=== PATIENT | female | born 1985 | race Caucasian/White ===

== ENCOUNTER 2018-06-12 09:52 | Inpatient (IN) ==
[2018-06-12] MEDS ORDERED: Sod Chloride 0.9% Inj 1,000 ML IV.CONT SCH (10:15)
[2018-06-12] MEDS ORDERED: Diatrizoate Meglum/Diatrizoate Sod Liq 9 ML UDC PO ONE ×2 (10:22→12:00)
[2018-06-12] MEDS ORDERED: Diatrizoate Meglum/Diatrizoate Sod Liq 9 ML UDC ONE (10:42)
[2018-06-12 10:48] LABS: Baso % (Auto) 0.3 % (0.0-2.0); Eos # (Auto) 0.7 th/mm3 (0.0-0.4); Eos % (Auto) 6.5 % (0.0-4.0); Hematocrit 25.4 % (35.0-46.0); Hemoglobin 8.1 gm/dL (11.6-15.3); Lymph # (Auto) 2.4 th/mm3 (1.0-4.8); Lymph % (Auto) 22.4 % (9.0-44.0); Mean Corpuscular HGB Conc 31.8 % (32.0-36.0); Mean Corpuscular Hemoglobin 25.3 pg (27.0-34.0); Mean Corpuscular Volume 79.5 fL (80.0-100.0); Mean Platelet Volume 6.9 fL (7.0-11.0); Neut # (Auto) 6.6 th/mm3 (1.8-7.7); Neut % (Auto) 61.8 % (16.0-70.0); Platelet Count 496 th/mm3 (150-450); Red Blood Count 3.19 mil/mm3 (4.00-5.30); Red Cell Distribution Width 15.1 % (11.6-17.2); White Blood Count 10.7 th/mm3 (4.0-11.0)
[2018-06-12 10:53] LABS: Activated Partial Thrombo Time 24.5 sec (24.3-30.1); INR 1.1 Ratio; Prothrombin Time 10.8 sec (9.8-11.6)
--- NOTE | 2018-06-12 10:56 | ED ---
HPI General Chief Complaint: Recheck/Abnormal Lab/Rx Stated Complaint: Blood Transfusion Time Seen by Provider: 06/12/18 10:09 Source: patient Mode of arrival: ambulatory Limitations: no limitations History of Present Illness HPI narrative: The patient is a 33-year-old female who presents to the emergency department for left lower quadrant abdominal pain, intermittent, and associate with diarrhea. The patient has a history of ulcerative colitis and recent infectious colitis with Yersinia and E. coli. The patient is followed by her senior ios developer, Dr. Maher, and underwent colonoscopy 2 weeks ago. The patient was supposed to take prednisone 40 mg daily, however, weaned herself to 5 mg daily. She has also been taking the mesalamine as directed. The patient is currently on Cipro and Flagyl as directed for her infectious colitis, however, continues to have symptoms. The patient denies any current fever, chills, or sweats. The abdominal pain is located in left lower quadrant, intermittent, crampy, associated with bowel movements. She does note bright red blood in the stool as well as in the toilet. The patient also complains of mild fatigue, dizziness with standing, shortness of breath with exertion. The patient was noted to have gradually lowering of her hemoglobin, was greater than 12, however, recent check was 8. The patient's senior ios developer did call and give report requesting admission with consultation to GI and transfusion for symptomatic anemia. MD complaint: abdominal pain Onset (ago): week(s) Pain Consistency: constant and intermittent Location: LLQ Severity: moderate Severity scale (1-10): 5 Quality: cramping Radiation: none Migration to: no migration Relieving factors: nothing Exacerbating factors: bowel movement Context: recent antibiotic use and other Associated symptoms: diarrhea Related Data Date of Last Menstrual Period: 05/28/18 Patient : No Allergies Allergy/AdvReac Type Severity Reaction Status Date / Time No Known Allergies Allergy Unverified 06/12/18 10:10 Review of Systems ROS: all other systems reviewed are negative [facility] Medical History Medical History Ulcerative colitis (Acute) Social History Social History Substance History: No History of Abuse Second Hand Smoke Exposure: No Smoking Status: Never smoker How Often Do You Have a Drink Containing Alcohol: 2 to 4 times a month Recent Out of Country Travel within the Last 8 Weeks: No Immunization History Tetanus Immunization: Unsure Hx Influenza Vaccine This Season: Yes Exam Narrative Exam Narrative: GENERAL: Awake, alert, pleasant 33-year-old female who appears her stated age and is in no acute respiratory distress. SKIN: Focused skin assessment warm/dry. HEAD: Atraumatic. Normocephalic. EYES: Pupils equal and round. Pallor of the conjunctival. ENT: No nasal bleeding or discharge. Mucous membranes pink and moist. NECK: Trachea midline. No JVD. CARDIOVASCULAR: Regular, tachycardic with a heart rate of 115. RESPIRATORY: No accessory muscle use. Clear to auscultation. Breath sounds equal bilaterally. GASTROINTESTINAL: Abdomen soft, mild left lower quadrant tenderness, no rebound tenderness, guarding, rigidity. MUSCULOSKELETAL: No obvious deformities. No clubbing. No cyanosis. No edema. Pallor of the palms noted bilaterally. Capillary refills less than 2 seconds. NEUROLOGICAL: Awake and alert. No obvious cranial nerve deficits. Motor grossly within normal limits. Normal speech. PSYCHIATRIC: Appropriate mood and affect; insight and judgment normal. Course Initial Documented Vital Signs Temperature 98.1 F 06/12/18 09:58 Pulse Rate 99 H 06/12/18 09:58 Respiratory Rate 16 06/12/18 09:58 Blood Pressure 128/76 06/12/18 09:58 Pulse Oximetry 99 06/12/18 09:58 Last Documented Vital Signs Temperature 98.1 F 06/12/18 09:58 Pulse Rate 108 H 06/12/18 10:03 Respiratory Rate 18 06/12/18 10:03 Blood Pressure 125/81 06/12/18 10:03 Pulse Oximetry 98 06/12/18 10:03 Medical Decision Making [facility] Narrative Medical decision making narrative: IV was established, labs are drawn and sent, and the patient was placed on cardiac telemetry monitoring and continuous pulse oximetry monitoring. Type and screen was sent to lab. The patient's hemoglobin was 8.1, she does have signs of symptomatic anemia with decreasing hemoglobin and active bleeding. GI requested transfusion, therefore, the patient was ordered 2 units of packed red blood cells. The patient will be kept n.p.o., will be admitted to the medical service with consultation to gastroenterology. I discussed the patient with last year to who agrees with admission. Medical Screen Exam Complete: Yes Emergency Medical Condition: Yes Differential Diagnosis Differential Diagnosis: Differential diagnosis includes symptomatic anemia, ulcerative colitis exacerbation, infectious colitis exacerbation, hematochezia, upper GI bleed, lower GI bleed, iron deficiency anemia. Lab Data Lab results reviewed: Yes I reviewed the patient's lab results. Lab results narrative: The patient's hemoglobin was 8.1 with hematocrit of 25.4. Result diagrams: 06/12/18 10:23 06/12/18 10:23 Lab Results 06/12/18 06/12/18 06/12/18 Range/Units 10:23 10:23 10:23 WBC 10.7 (4.0-11.0) th/mm3 RBC 3.19 L (4.00-5.30) mil/mm3 Hgb 8.1 L (11.6-15.3) gm/dL Hct 25.4 L (35.0-46.0) % MCV 79.5 L (80.0-100.0) fL MCH 25.3 L (27.0-34.0) pg MCHC 31.8 L (32.0-36.0) % RDW 15.1 (11.6-17.2) % Plt Count 496 H (150-450) th/mm3 MPV 6.9 L (7.0-11.0) fL Neut % (Auto) 61.8 (16.0-70.0) % Lymph % (Auto) 22.4 (9.0-44.0) % [place] % (Auto) 9.0 H (0.0-8.0) % Eos % (Auto) 6.5 H (0.0-4.0) % Baso % (Auto) 0.3 (0.0-2.0) % Neut # (Auto) 6.6 (1.8-7.7) th/mm3 Lymph # (Auto) 2.4 (1.0-4.8) th/mm3 [place] # (Auto) 1.0 H (0.0-0.9) th/mm3 Eos # (Auto) 0.7 H (0.0-0.4) th/mm3 Baso # (Auto) 0.0 (0.0-0.2) th/mm3 WBC Differential . Differential Comment Auto diff final PT 10.8 (9.8-11.6) sec INR 1.1 Ratio APTT 24.5 (24.3-30.1) sec Sodium 140 (136-145) meq/L Potassium 4.1 (3.5-5.1) meq/L Chloride 105 (98-107) meq/L Carbon Dioxide 29.0 (21.0-32.0) meq/L Anion Gap 6 (5-15) meq/L BUN 10 (7-18) mg/dL Creatinine 0.67 (0.50-1.00) mg/dL Estimated GFR Greater than 89 (>89) mL/min Random Glucose 87 (74-106) mg/dL Lactic Acid (0.4-2.0) mmol/L Calcium 8.2 L (8.5-10.1) mg/dL Total Bilirubin 0.2 (0.2-1.0) mg/dL AST 22 (15-37) U/L ALT 27 (10-53) U/L Alkaline Phosphatase 38 L (45-117) U/L Total Protein 6.3 L (6.4-8.2) g/dL Albumin 3.0 L (3.4-5.0) g/dL Lipase 83 (73-393) U/L Urine Color (Yellw/Straw) Urine Clarity (Clear) Urine pH (5.0-8.5) Ur Specific [place] (1.002-1.035) Urine Protein (Neg-Trace) mg/dL Urine Glucose (UA) (Negative) mg/dL Urine Ketones (Negative) mg/dL Urine Occult Blood (Negative) Urine Nitrate (Negative) Urine Bilirubin (Negative) Urine Urobilinogen (Less than 2) mg/dL Ur Leukocyte Esterase (Negative) Urine RBC (0-3) /hpf Urine WBC (0-5) /hpf Ur Squamous Epith Cells (0-5) /hpf Urine Mucus (Occasional) /lpf Micro UA Comment Ur Microscopic Review Urine Culture Comments Blood Type Blood Type Recheck Antibody Screen 06/12/18 06/12/18 06/12/18 Range/Units 10:23 10:23 10:23 WBC (4.0-11.0) th/mm3 RBC (4.00-5.30) mil/mm3 Hgb (11.6-15.3) gm/dL Hct (35.0-46.0) % MCV (80.0-100.0) fL MCH (27.0-34.0) pg MCHC (32.0-36.0) % RDW (11.6-17.2) % Plt Count (150-450) th/mm3 MPV (7.0-11.0) fL Neut % (Auto) (16.0-70.0) % Lymph % (Auto) (9.0-44.0) % [place] % (Auto) (0.0-8.0) % Eos % (Auto) (0.0-4.0) % Baso % (Auto) (0.0-2.0) % Neut # (Auto) (1.8-7.7) th/mm3 Lymph # (Auto) (1.0-4.8) th/mm3 [place] # (Auto) (0.0-0.9) th/mm3 Eos # (Auto) (0.0-0.4) th/mm3 Baso # (Auto) (0.0-0.2) th/mm3 WBC Differential Differential Comment PT (9.8-11.6) sec INR Ratio APTT (24.3-30.1) sec Sodium (136-145) meq/L Potassium (3.5-5.1) meq/L Chloride (98-107) meq/L Carbon Dioxide (21.0-32.0) meq/L Anion Gap (5-15) meq/L BUN (7-18) mg/dL Creatinine (0.50-1.00) mg/dL Estimated GFR (>89) mL/min Random Glucose (74-106) mg/dL Lactic Acid 0.6 (0.4-2.0) mmol/L Calcium (8.5-10.1) mg/dL Total Bilirubin (0.2-1.0) mg/dL AST (15-37) U/L ALT (10-53) U/L Alkaline Phosphatase (45-117) U/L Total Protein (6.4-8.2) g/dL Albumin (3.4-5.0) g/dL Lipase (73-393) U/L Urine Color Yellow (Yellw/Straw) Urine Clarity Clear (Clear) Urine pH 7.0 (5.0-8.5) Ur Specific [place] 1.008 (1.002-1.035) Urine Protein Negative (Neg-Trace) mg/dL Urine Glucose (UA) Negative (Negative) mg/dL Urine Ketones Negative (Negative) mg/dL Urine Occult Blood Negative (Negative) Urine Nitrate Negative (Negative) Urine Bilirubin Negative (Negative) Urine Urobilinogen Less than 2 (Less than 2) mg/dL Ur Leukocyte Esterase Negative (Negative) Urine RBC Less than 1 (0-3) /hpf Urine WBC Less than 1 (0-5) /hpf Ur Squamous Epith Cells <1 (0-5) /hpf Urine Mucus Few H (Occasional) /lpf Micro UA Comment Culture not ind Ur Microscopic Review Not Reportable Urine Culture Comments Culture not ind Blood Type O Positive Blood Type Recheck Required Antibody Screen Negative Discharge Plan Discharge Disposition Patient Disposition: 30 Still Patient Discharge Condition Condition: Stable Discharge Details Diagnosis: Symptomatic anemia, Ulcerative colitis with rectal bleeding Physicians Team ED Provider: Jhon Haro Primary Care Provider: Primary Care Tasneem Troncoso Discharge Interventions Interventions: Vital Signs Last Done: 06/12/18 10:03 Status ED Status: Pending Admission
[2018-06-12 11:04] LABS: Alanine Aminotransferase 27 U/L (10-53); Anion Gap 6 meq/L (5-15); Aspartate Aminotransferase 22 U/L (15-37); Bilirubin,Urine Negative (Negative); Blood Urea Nitrogen 10 mg/dL (7-18); Calcium 8.2 mg/dL (8.5-10.1); Chloride 105 meq/L (98-107); Color,Urine Yellow (Yellw/Straw); Glomerular Filtration Rate Greater Than 89 mL/min (>89); Glucose,Random 87 mg/dL (74-106); Glucose,Urine (UA) Negative (Negative); Leukocyte Esterase,Urine Negative (Negative); Lipase 83 U/L (73-393); Mucus,Urine Few /lpf (Occasional); Nitrite,Urine Negative (Negative); Potassium 4.1 meq/L (3.5-5.1); Sodium 140 meq/L (136-145); Specific Gravity,Urine 1.008 (1.002-1.035); Squamous Epithelial Cell,Urine <1 /hpf (0-5)
[2018-06-12 11:07] LABS: Alkaline Phosphatase 38 U/L (45-117); Clarity,Urine Clear (Clear); Total Protein 6.3 g/dL (6.4-8.2)
[2018-06-12] MEDS ORDERED: Acetaminophen 325 MG Tablet PO PRN (11:07)
--- NOTE | 2018-06-12 11:51 | P.CONGI ---
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 of this yr, with BRBPR and loose stools. At first symptoms used to be sporadic, but now daily, can have up to 6 episodes of bleeding w or w/out stools. She had colonoscopy with DR. Maher on ---> colitis involving sigmoid, descending and rectum worse in sigmoid, internal hemorrhoids, and external hemorrhoids. bx showed severe active diffuse chronic colitis with crypt abscesses in descending colon, sigmoid, and rectum. Pt did Uceris for 7 weeks with out results. Has been on oral and rectal mesalamine but hasn't been taking the recommended dose, as meds were samples and pt was trying to make them last. Currently on 5 mg of prednisone. Was also placed on Cipro Flagyl for E-coli and Yersinia enterocolitica in the stools. Pt denies nausea, vomiting, or hematemesis. abd pain is associated with having BM but denies severe abdominal pain other wang. Pt is currently not insured. She is in the process of obtaining insurance in June. Denies family hx of colon cancer or uc. Drinks on occasions, no blood thinner or NSAIDs. hgb on admission is 8.1. She is symptomatic with this with dizziness, fatigue and weakness. <Lisa Higginbotham - Last Filed: 06/12/18 14:16> Review of Systems All other systems reviewed negative except as stated in HPI <Lisa Higginbotham - Last Filed: 06/12/18 14:16> PMFSH - History History Provided By: Patient - Medical History Medical History: Medical History (Last Updated 06/12/18 @ 10:11 by Harlan Kenney) Ulcerative colitis - Tobacco History Second Hand Smoke Exposure: No Tobacco Use In Past 30 Days: No Smoking Status: Never smoker - Alcohol History How Often Do You Have a Drink Containing Alcohol: 2 to 4 times a month - Substance Use History Substance History: No History of Abuse - Travel History Recent Travel Out of the Country Within the Last 8 Weeks: No - Immunization History Tetanus Immunization: Unsure Hx Influenza Vaccine This Season: Yes <Lisa Higginbotham - Last Filed: 06/12/18 14:16> - Medical History Medical History: Medical History (Last Updated 06/12/18 @ 10:11 by Harlan Kenney) Ulcerative colitis <Uriel Hardin - Last Filed: 06/12/18 16:55> Medications and Allergies Active Medications: Active Medications Acetaminophen (Tylenol) 650 mg PO Q4H PRN PRN Reason: SEE LABEL COMMENTS Diatrizoate Meglum/Diatrizoate Sod ( Gastroview Liq) 18 ml PO ONCE ONE Stop: 06/12/18 11:31 Diphenhydramine HCl (Benadryl) 25 mg PO Q4H PRN PRN Reason: SEE LABEL COMMENTS Sodium Chloride (Ns Inj) 1,000 mls @ 125 mls/hr IV.CONT .Q8H IVAN Stop: 06/12/18 18:14 Last Admin: 06/12/18 10:38 Dose: 125 mls/hr Sodium Chloride (Ns Inj) 250 mls @ 15 mls/hr IV.SIG ONCE IVAN Stop: 06/13/18 04:39 Sodium Chloride (Ns Flush) 2 ml IV.FLUSH PRN PRN PRN Reason: FLUSH AFTER USING IV ACCESS <Lisa Higginbotham - Last Filed: 06/12/18 14:16> Active Medications: Active Medications Acetaminophen (Tylenol) 650 mg PO Q4H PRN PRN Reason: SEE LABEL COMMENTS Ciprofloxacin HCl (Cipro) 500 mg PO ONCE ONE Stop: 06/12/18 17:01 Last Admin: 06/12/18 16:45 Dose: 500 mg Diphenhydramine HCl (Benadryl) 25 mg PO Q4H PRN PRN Reason: SEE LABEL COMMENTS Sodium Chloride (Ns Inj) 250 mls @ 15 mls/hr IV.SIG ONCE IVAN Stop: 06/13/18 04:39 Last Admin: 06/12/18 14:38 Dose: 15 mls/hr Iron Sucrose 100 mg/ Sodium (Chloride) 105 mls @ 105 mls/hr IV.SIG ONCE ONE Stop: 06/12/18 16:59 Last Infusion: 06/12/18 16:49 Dose: Infused Metronidazole (Flagyl) 500 mg PO ONCE ONE Stop: 06/12/18 21:01 Sodium Chloride (Ns Flush) 2 ml IV.FLUSH PRN PRN PRN Reason: FLUSH AFTER USING IV ACCESS <Uriel Hardin E - Last Filed: 06/12/18 16:55> Allergies Allergy/AdvReac Type Severity Reaction Status Date / Time No Known Allergies Allergy Unverified 06/12/18 10:10 Home Medications Medication Instructions Recorded Confirmed Type prednisone 5 mg PO BID 06/12/18 06/12/18 History Exam Vital signs: Vital Signs 06/12/18 09:58 06/12/18 10:03 Temperature 98.1 F Pulse Rate 99 H 108 H Respiratory Rate 16 18 Blood Pressure 128/76 125/81 Pulse Oximetry 99 98 Intake & Output 06/11/18 06/12/18 06/12/18 18:59 06:59 18:59 Weight 68.039 kg - Constitutional no acute distress - Routine HEENT Exam Head: Present: normocephalic - Routine Neck Exam Present: supple - Routine Cardiovascular Exam Present: RRR - Routine Abdominal Exam Present: soft, normoactive bowel sounds. Absent: tenderness, distended - Routine Skin Exam Present: intact, dry - Routine Neurological Exam Present: alert, oriented X3 <Lisa Higginbotham - Last Filed: 06/12/18 14:16> Vital signs: Vital Signs 06/12/18 09:58 06/12/18 10:03 06/12/18 12:28 Temperature 98.1 F Pulse Rate 99 H 108 H 97 H Respiratory Rate 16 18 18 Blood Pressure 128/76 125/81 119/76 Pulse Oximetry 99 98 98 Intake & Output 06/11/18 06/12/18 06/12/18 18:59 06:59 18:59 Intake Total 105 / 105 Balance 105 / 105 Weight 68.039 kg Intake: IV 105 / 105 Venofer Inj 100 MG In NS Inj 105 / 105 100 ML @ 105 mls/hr IV.SIG ONCE ONE Rx#:[id number] <Uriel Hardin - Last Filed: 06/12/18 16:55> Results - Labs CBC & Chem 7: 06/12/18 10:23 06/12/18 10:23 Labs: Laboratory Results - last 24 hr 06/12/18 06/12/18 06/12/18 10:23 10:23 10:23 WBC 10.7 RBC 3.19 L Hgb 8.1 L Hct 25.4 L MCV 79.5 L MCH 25.3 L MCHC 31.8 L RDW 15.1 Plt Count 496 H MPV 6.9 L Neut % (Auto) 61.8 Lymph % (Auto) 22.4 [place] % (Auto) 9.0 H Eos % (Auto) 6.5 H Baso % (Auto) 0.3 Neut # (Auto) 6.6 Lymph # (Auto) 2.4 [place] # (Auto) 1.0 H Eos # (Auto) 0.7 H Baso # (Auto) 0.0 WBC Differential . Differential Comment Auto diff final PT 10.8 INR 1.1 APTT 24.5 Sodium 140 Potassium 4.1 Chloride 105 Carbon Dioxide 29.0 Anion Gap 6 BUN 10 Creatinine 0.67 Estimated GFR Greater than 89 Random Glucose 87 Lactic Acid Calcium 8.2 L Total Bilirubin 0.2 AST 22 ALT 27 Alkaline Phosphatase 38 L Total Protein 6.3 L Albumin 3.0 L Lipase 83 Urine Color Urine Clarity Urine pH Ur Specific [place] Urine Protein Urine Glucose (UA) Urine Ketones Urine Occult Blood Urine Nitrate Urine Bilirubin Urine Urobilinogen Ur Leukocyte Esterase Urine RBC Urine WBC Ur Squamous Epith Cells Urine Mucus Micro UA Comment Ur Microscopic Review Urine Culture Comments Blood Type 06/12/18 06/12/18 06/12/18 10:23 10:23 10:23 WBC RBC Hgb Hct MCV MCH MCHC RDW Plt Count MPV Neut % (Auto) Lymph % (Auto) [place] % (Auto) Eos % (Auto) Baso % (Auto) Neut # (Auto) Lymph # (Auto) [place] # (Auto) Eos # (Auto) Baso # (Auto) WBC Differential Differential Comment PT INR APTT Sodium Potassium Chloride Carbon Dioxide Anion Gap BUN Creatinine Estimated GFR Random Glucose Lactic Acid 0.6 Calcium Total Bilirubin AST ALT Alkaline Phosphatase Total Protein Albumin Lipase Urine Color Yellow Urine Clarity Clear Urine pH 7.0 Ur Specific [place] 1.008 Urine Protein Negative Urine Glucose (UA) Negative Urine Ketones Negative Urine Occult Blood Negative Urine Nitrate Negative Urine Bilirubin Negative Urine Urobilinogen Less than 2 Ur Leukocyte Esterase Negative Urine RBC Less than 1 Urine WBC Less than 1 Ur Squamous Epith Cells <1 Urine Mucus Few H Micro UA Comment Culture not ind Ur Microscopic Review Not Reportable Urine Culture Comments Culture not ind Blood Type O Positive <Lisa Higginbotham - Last Filed: 06/12/18 14:16> - Labs CBC & Chem 7: 06/12/18 10:23 09/20/18 10:23 Labs: Laboratory Results - last 24 hr 06/12/18 06/12/18 06/12/18 10:23 10:23 10:23 WBC 10.7 RBC 3.19 L Hgb 8.1 L Hct 25.4 L MCV 79.5 L MCH 25.3 L MCHC 31.8 L RDW 15.1 Plt Count 496 H MPV 6.9 L Neut % (Auto) 61.8 Lymph % (Auto) 22.4 [place] % (Auto) 9.0 H Eos % (Auto) 6.5 H Baso % (Auto) 0.3 Neut # (Auto) 6.6 Lymph # (Auto) 2.4 [place] # (Auto) 1.0 H Eos # (Auto) 0.7 H Baso # (Auto) 0.0 WBC Differential . Differential Comment Auto diff final Retic Count Absolute Retic PT 10.8 INR 1.1 APTT 24.5 Sodium 140 Potassium 4.1 Chloride 105 Carbon Dioxide 29.0 Anion Gap 6 BUN 10 Creatinine 0.67 Estimated GFR Greater than 89 Random Glucose 87 Lactic Acid Calcium 8.2 L Iron 18 L TIBC 290 Iron & TIBC % Saturation 6.2 L Ferritin 5 L Total Bilirubin 0.2 AST 22 ALT 27 Alkaline Phosphatase 38 L Lactate Dehydrogenase 147 Total Protein 6.3 L Albumin 3.0 L Lipase 83 Urine Color Urine Clarity Urine pH Ur Specific [place] Urine Protein Urine Glucose (UA) Urine Ketones Urine Occult Blood Urine Nitrate Urine Bilirubin Urine Urobilinogen Ur Leukocyte Esterase Urine RBC Urine WBC Ur Squamous Epith Cells Urine Mucus Micro UA Comment Ur Microscopic Review Urine Culture Comments Blood Type Blood Type Recheck Antibody Screen MTS Gel Crossmatch 06/12/18 06/12/18 06/12/18 10:23 10:23 10:23 WBC RBC Hgb Hct MCV MCH MCHC RDW Plt Count MPV Neut % (Auto) Lymph % (Auto) [place] % (Auto) Eos % (Auto) Baso % (Auto) Neut # (Auto) Lymph # (Auto) [place] # (Auto) Eos # (Auto) Baso # (Auto) WBC Differential Differential Comment Retic Count Absolute Retic PT INR APTT Sodium Potassium Chloride Carbon Dioxide Anion Gap BUN Creatinine Estimated GFR Random Glucose Lactic Acid 0.6 Calcium Iron TIBC Iron & TIBC % Saturation Ferritin Total Bilirubin AST ALT Alkaline Phosphatase Lactate Dehydrogenase Total Protein Albumin Lipase Urine Color Yellow Urine Clarity Clear Urine pH 7.0 Ur Specific [place] 1.008 Urine Protein Negative Urine Glucose (UA) Negative Urine Ketones Negative Urine Occult Blood Negative Urine Nitrate Negative Urine Bilirubin Negative Urine Urobilinogen Less than 2 Ur Leukocyte Esterase Negative Urine RBC Less than 1 Urine WBC Less than 1 Ur Squamous Epith Cells <1 Urine Mucus Few H Micro UA Comment Culture not ind Ur Microscopic Review Not Reportable Urine Culture Comments Culture not ind Blood Type O Positive Blood Type Recheck Required Antibody Screen Negative MTS Gel Crossmatch 06/12/18 06/12/18 06/12/18 10:23 10:23 10:23 WBC RBC Hgb Hct MCV MCH MCHC RDW Plt Count MPV Neut % (Auto) Lymph % (Auto) [place] % (Auto) Eos % (Auto) Baso % (Auto) Neut # (Auto) Lymph # (Auto) [place] # (Auto) Eos # (Auto) Baso # (Auto) WBC Differential Differential Comment Retic Count 4.1 H Absolute Retic 128.6 PT INR APTT Sodium Potassium Chloride Carbon Dioxide Anion Gap BUN Creatinine Estimated GFR Random Glucose Lactic Acid Calcium Iron Cancelled TIBC Cancelled Iron & TIBC Cancelled % Saturation Cancelled Ferritin Cancelled Total Bilirubin AST ALT Alkaline Phosphatase Lactate Dehydrogenase Cancelled Total Protein Albumin Lipase Urine Color Urine Clarity Urine pH Ur Specific [place] Urine Protein Urine Glucose (UA) Urine Ketones Urine Occult Blood Urine Nitrate Urine Bilirubin Urine Urobilinogen Ur Leukocyte Esterase Urine RBC Urine WBC Ur Squamous Epith Cells Urine Mucus Micro UA Comment Ur Microscopic Review Urine Culture Comments Blood Type Blood Type Recheck Antibody Screen MTS Gel Crossmatch 06/12/18 14:32 WBC RBC Hgb Hct MCV MCH MCHC RDW Plt Count MPV Neut % (Auto) Lymph % (Auto) [place] % (Auto) Eos % (Auto) Baso % (Auto) Neut # (Auto) Lymph # (Auto) [place] # (Auto) Eos # (Auto) Baso # (Auto) WBC Differential Differential Comment Retic Count Absolute Retic PT INR APTT Sodium Potassium Chloride Carbon Dioxide Anion Gap BUN Creatinine Estimated GFR Random Glucose Lactic Acid Calcium Iron TIBC Iron & TIBC % Saturation Ferritin Total Bilirubin AST ALT Alkaline Phosphatase Lactate Dehydrogenase Total Protein Albumin Lipase Urine Color Urine Clarity Urine pH Ur Specific [place] Urine Protein Urine Glucose (UA) Urine Ketones Urine Occult Blood Urine Nitrate Urine Bilirubin Urine Urobilinogen Ur Leukocyte Esterase Urine RBC Urine WBC Ur Squamous Epith Cells Urine Mucus Micro UA Comment Ur Microscopic Review Urine Culture Comments Blood Type Blood Type Recheck Antibody Screen MTS Gel Crossmatch See Detail <Uriel Hardin E - Last Filed: 06/12/18 16:55> Assessment and Plan - Plan - Colitis flare with BRBPR/ and loose stools, with anemia- This could be combination of infectious and UC No documented failure of tx at this point, pt hasn't been on steady tx 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 of this yr, with BRBPR and loose stools. At first symptoms used to be sporadic, but now daily, can have up to 6 episodes of bleeding w or w/out stools. She had colonoscopy with DR. Maher on 05/16/18 ---> colitis involving sigmoid, descending and rectum worse in sigmoid, internal hemorrhoids, and external hemorrhoids. bx showed severe active diffuse chronic colitis with crypt abscesses in descending colon, sigmoid, and rectum. Pt did Uceris for 7 weeks with out results. Has been on oral and rectal mesalamine which she is getting samples for due to lack of insurance. She hasn't been on steady tx as recommended. Currently on 5 mg of prednisone. Was also placed on Cipro Flagyl for E-coli and Yersinia enterocolitica in the stools. Pt denies nausea, vomiting, or hematemesis. abd pain is associated with having BM but denies severe abdominal pain other wang. Pt is currently not insured. She is in the process of obtaining insurance in June. Denies family hx of colon cancer or uc. Drinks on occasions, no blood thinner or NSAIDs. - Anemia- due to Gi bleed, hgb on admission is 8.1. She is symptomatic with this with dizziness, fatigue and weakness. - E-coli and Yersinia enterocolitica in the stools. Was also placed on Cipro Flagyl Plan: - Regular diet - Transfuse 2 units of blood, in view of active bleeding - Stool studies - Discussed doing Flex/sig and CT with pt but declining both at this time, would like to go home after transfusion States she is in process of getting insurance, she will do needed work up then - Prednisone 40 mg daily and taper down every 10 days by 10 mg - Ok to go home after blood transfusion - f/u with GI upon discharge - Complete the dose of Cipro and Flagyl - Pt might need aggressive tx such as Imuran and biologics, will discuss as an OP pt hasn't been on steady tx for UC, will need to try regular regimen prior to starting biologics - pt seen and examined by Dr. Hardin and myself and this note is written on his behalf. 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
[2018-06-12 12:00] LABS: Reticulocyte Percent 4.1 % (0.4-3.0)
[2018-06-12] MEDS ORDERED: Sodium Chlor 0.9% Inj 250 ML IV.SIG SCH (12:00)
[2018-06-12] MEDS ORDERED: predniSONE 20 MG Tablet PO SCH (12:00)
[2018-06-12 12:14] LABS: % Iron Saturation 6.2 % (20-50); Iron 18 mcg/dL (50-170); Lactate Dehydrogenase 147 U/L (84-246); Total Iron Binding Capacity 290 mcg/dL (250-450)
[2018-06-12 12:20] LABS: Ferritin 5 ng/mL (8-252)
--- NOTE | 2018-06-12 12:51 | P.HP ---
History of Present Illness Primary Care Physician: No Primary Care Physician Inpatient Certification: I certify that the inpatient services were ordered in accordance with Medicare regulations governing the order. This includes certification that hospital inpatient services are reasonable and necessary and in the case of services not specified as inpatient-only under 42 CFR 419.22(n), that they are appropriately provided as inpatient services in accordance to with the 2-midnight benchmark under 43 CFR 412.3(e) Estimated Total Length of Stay (Days): 2 Plans for Post Hospital Care: Not yet determined PMF - History History Provided By: Patient - Medical History Medical History: Medical History (Last Updated 06/12/18 @ 10:11 by Harlan Kenney) Ulcerative colitis - Tobacco History Second Hand Smoke Exposure: No Tobacco Use In Past 30 Days: No Smoking Status: Never smoker - Alcohol History How Often Do You Have a Drink Containing Alcohol: 2 to 4 times a month - Substance Use History Substance History: No History of Abuse - Travel History Recent Travel Out of the Country Within the Last 8 Weeks: No - Immunization History Tetanus Immunization: Unsure Hx Influenza Vaccine This Season: Yes Medications and Allergies Active Medications: Active Medications Acetaminophen (Tylenol) 650 mg PO Q4H PRN PRN Reason: SEE LABEL COMMENTS Diphenhydramine HCl (Benadryl) 25 mg PO Q4H PRN PRN Reason: SEE LABEL COMMENTS Sodium Chloride (Ns Inj) 1,000 mls @ 125 mls/hr IV.CONT .Q8H [facility] Stop: 06/12/18 18:14 Last Admin: 06/12/18 10:38 Dose: 125 mls/hr Sodium Chloride (Ns Inj) 250 mls @ 15 mls/hr IV.SIG ONCE IVAN Stop: 06/13/18 04:39 Prednisone (Deltasone) 20 mg PO BID [facility] Sodium Chloride (Ns Flush) 2 ml IV.FLUSH PRN PRN PRN Reason: FLUSH AFTER USING IV ACCESS Allergies Allergy/AdvReac Type Severity Reaction Status Date / Time No Known Allergies Allergy Unverified 06/12/18 10:10 Home Medications Medication Instructions Recorded Confirmed Type prednisone 5 mg PO BID 06/12/18 06/12/18 History sulfasalazine 1 g PO DAILY 06/12/18 06/12/18 History Exam Vital signs: Vital Signs 06/12/18 09:58 06/12/18 10:03 06/12/18 12:28 Temperature 98.1 F Pulse Rate 99 H 108 H 97 H Respiratory Rate 16 18 18 Blood Pressure 128/76 125/81 119/76 Pulse Oximetry 99 98 98 Intake & Output 06/11/18 06/12/18 06/12/18 18:59 06:59 18:59 Weight 68.039 kg Results - Labs CBC & Chem 7: 06/12/18 10:23 06/12/18 10:23 Labs: Laboratory Results - last 24 hr 06/12/18 06/12/18 06/12/18 10:23 10:23 10:23 WBC 10.7 RBC 3.19 L Hgb 8.1 L Hct 25.4 L MCV 79.5 L MCH 25.3 L MCHC 31.8 L RDW 15.1 Plt Count 496 H MPV 6.9 L Neut % (Auto) 61.8 Lymph % (Auto) 22.4 [place] % (Auto) 9.0 H Eos % (Auto) 6.5 H Baso % (Auto) 0.3 Neut # (Auto) 6.6 Lymph # (Auto) 2.4 [place] # (Auto) 1.0 H Eos # (Auto) 0.7 H Baso # (Auto) 0.0 WBC Differential . Differential Comment Auto diff final Retic Count Absolute Retic PT 10.8 INR 1.1 APTT 24.5 Sodium 140 Potassium 4.1 Chloride 105 Carbon Dioxide 29.0 Anion Gap 6 BUN 10 Creatinine 0.67 Estimated GFR Greater than 89 Random Glucose 87 Lactic Acid Calcium 8.2 L Iron 18 L TIBC 290 Iron & TIBC % Saturation 6.2 L Ferritin 5 L Total Bilirubin 0.2 AST 22 ALT 27 Alkaline Phosphatase 38 L Lactate Dehydrogenase 147 Total Protein 6.3 L Albumin 3.0 L Lipase 83 Urine Color Urine Clarity Urine pH Ur Specific [place] Urine Protein Urine Glucose (UA) Urine Ketones Urine Occult Blood Urine Nitrate Urine Bilirubin Urine Urobilinogen Ur Leukocyte Esterase Urine RBC Urine WBC Ur Squamous Epith Cells Urine Mucus Micro UA Comment Ur Microscopic Review Urine Culture Comments Blood Type Blood Type Recheck Antibody Screen 06/12/18 06/12/18 06/12/18 10:23 10:23 10:23 WBC RBC Hgb Hct MCV MCH MCHC RDW Plt Count MPV Neut % (Auto) Lymph % (Auto) [place] % (Auto) Eos % (Auto) Baso % (Auto) Neut # (Auto) Lymph # (Auto) [place] # (Auto) Eos # (Auto) Baso # (Auto) WBC Differential Differential Comment Retic Count Absolute Retic PT INR APTT Sodium Potassium Chloride Carbon Dioxide Anion Gap BUN Creatinine Estimated GFR Random Glucose Lactic Acid 0.6 Calcium Iron TIBC Iron & TIBC % Saturation Ferritin Total Bilirubin AST ALT Alkaline Phosphatase Lactate Dehydrogenase Total Protein Albumin Lipase Urine Color Yellow Urine Clarity Clear Urine pH 7.0 Ur Specific [place] 1.008 Urine Protein Negative Urine Glucose (UA) Negative Urine Ketones Negative Urine Occult Blood Negative Urine Nitrate Negative Urine Bilirubin Negative Urine Urobilinogen Less than 2 Ur Leukocyte Esterase Negative Urine RBC Less than 1 Urine WBC Less than 1 Ur Squamous Epith Cells <1 Urine Mucus Few H Micro UA Comment Culture not ind Ur Microscopic Review Not Reportable Urine Culture Comments Culture not ind Blood Type O Positive Blood Type Recheck Required Antibody Screen Negative 06/12/18 06/12/18 06/12/18 10:23 10:23 10:23 WBC RBC Hgb Hct MCV MCH MCHC RDW Plt Count MPV Neut % (Auto) Lymph % (Auto) [place] % (Auto) Eos % (Auto) Baso % (Auto) Neut # (Auto) Lymph # (Auto) [place] # (Auto) Eos # (Auto) Baso # (Auto) WBC Differential Differential Comment Retic Count 4.1 H Absolute Retic 128.6 PT INR APTT Sodium Potassium Chloride Carbon Dioxide Anion Gap BUN Creatinine Estimated GFR Random Glucose Lactic Acid Calcium Iron Cancelled TIBC Cancelled Iron & TIBC Cancelled % Saturation Cancelled Ferritin Cancelled Total Bilirubin AST ALT Alkaline Phosphatase Lactate Dehydrogenase Cancelled Total Protein Albumin Lipase Urine Color Urine Clarity Urine pH Ur Specific [place] Urine Protein Urine Glucose (UA) Urine Ketones Urine Occult Blood Urine Nitrate Urine Bilirubin Urine Urobilinogen Ur Leukocyte Esterase Urine RBC Urine WBC Ur Squamous Epith Cells Urine Mucus Micro UA Comment Ur Microscopic Review Urine Culture Comments Blood Type Blood Type Recheck Antibody Screen Caprini VTE Risk Assessment Caprini Risk Assessment Model: Point Value = 1 Point Value = 2 Point Value = 3 Point Value = 5 Age 41-60 Minor surgery BMI > 25 kg/m2 Swollen legs Varicose veins or History of unexplained or recurrent spontaneous Oral contraceptives or hormone replacement Sepsis (< 1 month) Serious lung disease, including pneumonia (< 1 month) Abnormal pulmonary function Acute myocardial infarction Congestive heart failure (< 1 month) History of inflammatory bowel disease Medical patient at bed rest Age 61-74 Arthroscopic surgery Major open surgery (> 45 min) Laparoscopic surgery (> 45 min) Malignancy Confined to bed (> 72 hours) Immobilizing plaster cast Central venous access Age >= 75 History of VTE Family history of VTE Factor V Leiden Prothrombin [id number] Lupus anticoagulant Anticardiolipin antibodies Elevated serum homocysteine Heparin-induced thrombocytopenia Other congenital or acquired thrombophilia Stroke (< 1 month) Elective arthroplasty Hip, pelvis, or leg fracture Acute spinal cord injury (< 1 month) Prophylaxis Regimen: Total Risk Factor Score Risk Level Prophylaxis Regimen 0-1 Low Early ambulation 2 Moderate Order ONE of the following: *Sequential Compression Device (SCD) *Heparin 5000 units SQ BID 3-4 Higher Order ONE of the following medications: *Heparin 5000 units SQ TID *Enoxaparin/Lovenox 40 mg SQ daily (WT < 150 kg, CrCl > 30 mL/min) *Enoxaparin/Lovenox 30 mg SQ daily (WT < 150 kg, CrCl > 10-29 mL/min) *Enoxaparin/Lovenox 30 mg SQ BID (WT < 150 kg, CrCl > 30 mL/min) AND/OR *Sequential Compression Device (SCD) 5 or more Highest Order ONE of the following medications: *Heparin 5000 units SQ TID (Preferred with Epidurals) *Enoxaparin/Lovenox 40 mg SQ daily (WT < 150 kg, CrCl > 30 mL/min) *Enoxaparin/Lovenox 30 mg SQ daily (WT < 150 kg, CrCl > 10-29 mL/min) *Enoxaparin/Lovenox 30 mg SQ BID (WT < 150 kg, CrCl > 30 mL/min) AND *Sequential Compression Device (SCD)
[2018-06-12] MEDS ORDERED: metroNIDAZOLE 500 MG Tablet PO ONE ×2 (14:30→21:00)
[2018-06-12] MEDS ORDERED: MethylPREDNISolone Sod Succinate Inj 125 MG/2 ML Vial IV.PUSH ONE (14:30)
--- NOTE | 2018-06-12 14:42 | P.HPIM ---
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 Pt was having diarrhea issues and with rectal bleeding and abdomen pain. She was using intermittent canasa suppositories and later budesonide for 7 weeks with really not much improvement. Over past month her bloody diarrhea is much worse and she underwent colonoscopy on May 16 2018 showing colitis involving sigmoid, descending and rectum worse in sigmoid, internal hemorrhoids, and external hemorrhoids. bx showed severe active diffuse chronic colitis with crypt abscesses in descending colon, sigmoid, and rectum. She was diagnosed with ulcerative colitis. Whe was prescribed 40mg prednisone with taper but pt only took 5mg per day. Mesalamine samples were given but only taking 400mg daily instead of 800 tid. No improvement in bloody diarrhea. Stool cx's were taken May 30 2018 and GI was concerned about ecoli and yersinia enterocolitica and prescribing 7 days cipro/flagyl and pt is on day 6. Became more sob with exertion, fatigued, dizzy and pale. Her baseline hgb is said to be around 12 and she was with hgb 8 yesterday and today with iron deficiency. 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 Pt would like to get blood and then f/u outpt. She is denying abdomen pain. PMH Ulcerative colitis. dx May 16 colonoscopy proctitis dx on C scope December 2016 right achilles tendon surgery x 2 sh: rare etoh/ no tob fh: negative for IBD Allergies. nkda - Diagnosis (1) Ulcerative colitis (2) Acute blood loss anemia Inpatient Certification: I certify that the inpatient services were ordered in accordance with Medicare regulations governing the order. This includes certification that hospital inpatient services are reasonable and necessary and in the case of services not specified as inpatient-only under 42 CFR 419.22(n), that they are appropriately provided as inpatient services in accordance to with the 2-midnight benchmark under 43 CFR 412.3(e) Estimated Total Length of Stay (Days): 2 Plans for Post Hospital Care: Not yet determined Review of Systems bloody diarrhea dizzy/sob/lh PMFSH - History History Provided By: Patient - Medical History Medical History: Medical History (Last Updated 06/12/18 @ 10:11 by Harlan Kenney) Ulcerative colitis - Tobacco History Second Hand Smoke Exposure: No Tobacco Use In Past 30 Days: No Smoking Status: Never smoker - Alcohol History How Often Do You Have a Drink Containing Alcohol: 2 to 4 times a month - Substance Use History Substance History: No History of Abuse - Travel History Recent Travel Out of the Country Within the Last 8 Weeks: No - Immunization History Tetanus Immunization: Unsure Hx Influenza Vaccine This Season: Yes Medications and Allergies Active Medications: Active Medications Acetaminophen (Tylenol) 650 mg PO Q4H PRN PRN Reason: SEE LABEL COMMENTS Ciprofloxacin HCl (Cipro) 500 mg PO ONCE ONE Stop: 06/12/18 17:01 Diphenhydramine HCl (Benadryl) 25 mg PO Q4H PRN PRN Reason: SEE LABEL COMMENTS Sodium Chloride (Ns Inj) 250 mls @ 15 mls/hr IV.SIG ONCE IVAN Stop: 06/13/18 04:39 Iron Sucrose 100 mg/ Sodium (Chloride) 105 mls @ 105 mls/hr IV.SIG ONCE ONE Stop: 06/12/18 16:59 Mesalamine (Asacol Hd Dr) 1,600 mg PO ONCE ONE Stop: 06/12/18 14:24 Methylprednisolone Sodium Succinate (Solumedrol Inj) 125 mg IV.PUSH ONCE ONE Stop: 06/12/18 14:31 Metronidazole (Flagyl) 500 mg PO ONCE ONE Stop: 06/12/18 14:31 Sodium Chloride (Ns Flush) 2 ml IV.FLUSH PRN PRN PRN Reason: FLUSH AFTER USING IV ACCESS Allergies Allergy/AdvReac Type Severity Reaction Status Date / Time No Known Allergies Allergy Unverified 06/12/18 10:10 Home Medications Medication Instructions Recorded Confirmed Type prednisone 5 mg PO BID 06/12/18 06/12/18 History Exam Vital signs: Vital Signs 06/12/18 09:58 06/12/18 10:03 06/12/18 12:28 Temperature 98.1 F Pulse Rate 99 H 108 H 97 H Respiratory Rate 16 18 18 Blood Pressure 128/76 125/81 119/76 Pulse Oximetry 99 98 98 Intake & Output 06/11/18 06/12/18 06/12/18 18:59 06:59 18:59 Weight 68.039 kg hear reg lung cta abd s/nt/nd/nabs ext no edema Results - Labs CBC & Chem 7: 06/12/18 10:23 06/12/18 10:23 Labs: Short CBC 06/12/18 Range/Units 10:23 WBC 10.7 (4.0-11.0) th/mm3 Hgb 8.1 L (11.6-15.3) gm/dL Hct 25.4 L (35.0-46.0) % Plt Count 496 H (150-450) th/mm3 BMP 06/12/18 10:23 Sodium 140 Potassium 4.1 Chloride 105 Carbon Dioxide 29.0 BUN 10 Creatinine 0.67 Calcium 8.2 L Liver Function 06/12/18 Range/Units 10:23 Total Bilirubin 0.2 (0.2-1.0) mg/dL AST 22 (15-37) U/L ALT 27 (10-53) U/L Alkaline Phosphatase 38 L (45-117) U/L Albumin 3.0 L (3.4-5.0) g/dL Urine 06/12/18 Range/Units 10:23 Urine Color Yellow (Yellw/Straw) Urine Clarity Clear (Clear) Urine pH 7.0 (5.0-8.5) Ur Specific [place] 1.008 (1.002-1.035) Urine Protein Negative (Neg-Trace) mg/dL Urine Glucose (UA) Negative (Negative) mg/dL Caprini VTE Risk Assessment Caprini VTE Risk Assessment: No/Low Risk (score <= 1) Caprini Risk Assessment Model: Point Value = 1 Point Value = 2 Point Value = 3 Point Value = 5 Age 41-60 Minor surgery BMI > 25 kg/m2 Swollen legs Varicose veins or History of unexplained or recurrent spontaneous Oral contraceptives or hormone replacement Sepsis (< 1 month) Serious lung disease, including pneumonia (< 1 month) Abnormal pulmonary function Acute myocardial infarction Congestive heart failure (< 1 month) History of inflammatory bowel disease Medical patient at bed rest Age 61-74 Arthroscopic surgery Major open surgery (> 45 min) Laparoscopic surgery (> 45 min) Malignancy Confined to bed (> 72 hours) Immobilizing plaster cast Central venous access Age >= 75 History of VTE Family history of VTE Factor V Leiden Prothrombin [id number] Lupus anticoagulant Anticardiolipin antibodies Elevated serum homocysteine Heparin-induced thrombocytopenia Other congenital or acquired thrombophilia Stroke (< 1 month) Elective arthroplasty Hip, pelvis, or leg fracture Acute spinal cord injury (< 1 month) Prophylaxis Regimen: Total Risk Factor Score Risk Level Prophylaxis Regimen 0-1 Low Early ambulation 2 Moderate Order ONE of the following: *Sequential Compression Device (SCD) *Heparin 5000 units SQ BID 3-4 Higher Order ONE of the following medications: *Heparin 5000 units SQ TID *Enoxaparin/Lovenox 40 mg SQ daily (WT < 150 kg, CrCl > 30 mL/min) *Enoxaparin/Lovenox 30 mg SQ daily (WT < 150 kg, CrCl > 10-29 mL/min) *Enoxaparin/Lovenox 30 mg SQ BID (WT < 150 kg, CrCl > 30 mL/min) AND/OR *Sequential Compression Device (SCD) 5 or more Highest Order ONE of the following medications: *Heparin 5000 units SQ TID (Preferred with Epidurals) *Enoxaparin/Lovenox 40 mg SQ daily (WT < 150 kg, CrCl > 30 mL/min) *Enoxaparin/Lovenox 30 mg SQ daily (WT < 150 kg, CrCl > 10-29 mL/min) *Enoxaparin/Lovenox 30 mg SQ BID (WT < 150 kg, CrCl > 30 mL/min) AND *Sequential Compression Device (SCD) Assessment and Plan - Assessment (1) Ulcerative colitis Code(s): K51.90 - Ulcerative colitis, unspecified, without complications Status: Acute Plan: 1. ulcerative colitis 2. infectious diarrhea 3. acute blood loss anemia/symptomatic related to UC blood losses. 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 Pt diagnosed with UC last month. She has not taken adequate treatment as she was noncompliant due to financial concerns. She was not using prednisone nor mesalamine as prescribed. Also she was found to have an infectious diarrhea on top of her UC with yersinia enterocolitica. Pt will be given 2 units of blood She is iron deficient and will attempt to give her a dose of venofer iron here. cont cipro /flagyl resume correct dose of mesalamine iv solumedrol her then 40mg dailyi with slow taper of 10mg every 10days. Pt not interested in staying overnight. she will be discharged after the above given and scripts for prednisone and the antibiotics. she will get mesalamine samples from Dr Maher. (2) Acute blood loss anemia Code(s): D62 - Acute posthemorrhagic anemia Status: Acute
[2018-06-12] MEDS ORDERED: Mesalamine 800 MG Tablet DR PO ONE (15:00)
[2018-06-12] MEDS ORDERED: Iron Sucrose Inj 100 MG in Sodium Chlor 0.9% Inj 100 ML IV.SIG ONE (16:00)
[2018-06-12] MEDS ORDERED: Ciprofloxacin 500 MG Tablet PO ONE (17:00)
[2018-06-12 22:05] VITALS: O2SAT 96
[2018-06-13 00:14] VITALS: BP 100/62; PULSE 85; RESP 17; TEMP 97.5
== END 2018-06-13 00:16 | disposition home or self-care (01) ==
LOC: NEPE 09:52 → NEDA 11:31 → N04 13:05
PROVIDERS: ADMIT Hospitalist; ATTEND Hospitalist